=== PATIENT | male | born 2000 | race Caucasian/White ===

== ENCOUNTER 2021-02-12 17:50 | Emergency (ER) | payer SELFPAY ==
[~2021-02-12] VITALS: Ht 170.2 cm; Wt 83.9 kg
== END 2021-02-12 21:45 | disposition home or self-care (01) ==
LOC: ED 17:50
DX: S43.402A Unspecified sprain of left shoulder joint, initial encounter (principal); W01.10XA Fall on same level from slipping, tripping and stumbling with subsequent striking against unspecified object, initial encounter
CPT/HCPCS: 73030; 99283-25